=== PATIENT | female | born 1995 | race Two or more races ===

== ENCOUNTER 2020-05-28 17:15 | Emergency (ER) | payer MEDICAID ==
[2020-05-28 17:45] VITALS: BP 156/71
--- NOTE | 2020-05-28 17:45 | NUR ---
ED Nurse Note: Pt walked in to ED c/o increased hear rate with SOB. Per pt, she ran out of her inhaler. Hx of asthma. AAOx4, verbally responsive. Not in any distress. ERMD at bedside.
--- NOTE | 2020-05-28 17:50 | NUR ---
ED Nurse Note: Pt refused blood work and providing urine, ERMD notified.
--- NOTE | 2020-05-28 18:00 | NUR ---
ED Nurse Note: Xray at bedside.
[2020-05-28] MEDS ORDERED: ALBUTEROL SULF8.5 G1 INH (21:12)
--- NOTE | 2020-05-28 21:12 | Emergency Room Report ---
History of Present Illness General Chief Complaint: Shortness of Breath Source: Patient Present Illness HPI 25-year-old female history of asthma history of smoking, history of marijuana use presents with acute shortness of breath, patient reports running out of her inhaler, shortness of breath is alleviated with inhaler use aggravated by smoking, severity is moderate, constant patient is very anxious, patient presents for evaluation and treatment Patient History Past Medical History: see triage record Reviewed Nursing Documentation: PMH: Agreed; PSxH: Agreed Review of Systems All Other Systems: negative except mentioned in HPI Physical Exam Tachycardic SaO2 99 Sp02 EP Interpretation: reviewed, normal General Appearance: well appearing, no apparent distress, alert Head: normocephalic, atraumatic Eyes: bilateral eye PERRL, bilateral eye EOMI ENT: uvula midline, moist mucus membranes Neck: supple, thyroid normal, supple/symm/no masses Respiratory: no accessory muscle use, decreased breath sounds, wheezing Cardiovascular #1: normal peripheral pulses, no edema, no gallop, no murmur, tachycardia Gastrointestinal: non tender, soft, no guarding, no rebound Musculoskeletal: normal inspection Neurologic: alert, oriented x3 Psychiatric: anxious Skin: no rash, warm/dry Medical Decision Making Diagnostic Impression: Primary Impression: Asthma attack Qualified Codes: J45.901 - Unspecified asthma with (acute) exacerbation ER Course Please note this chart was transcribed after downtime was resolved, [employer] went down at 1 PM abruptly 25-year-old female presents with acute shortness of breath tachycardia, differential diagnosis includes asthma attack, pneumonia, COVID chest x-ray negative, EKG is sinus tachycardia, patient with wheezing on exam, and shortness of breath Patient was given Decadron, albuterol, with relief patient refused blood work patient was also given 3 L of NS Reevaluation at 9:10 PM patient feels comfortable currently on her phone wants to leave EKG Diagnostic Results EKG Time: 18:08 EP Interpretation: Sinus tachycardia, rate 116, QTc 444, no acute ST elevations , normal axis Rhythm Strip Diag. Results Rhythm Strip Time: 19:00 EP Interpretation: yes Rate: 99 Rhythm: NSR, no PVC's, no ectopy Chest X-Ray Diagnostic Results Chest X-Ray Diagnostic Results : Chest X-Ray Ordered: Yes # of Views/Limited/Complete: 1 View Indication: Shortness of Breath EP Interpretation: Yes Interpretation: no consolidation, no effusion, no pneumothorax, no acute cardiopulmonary disease Impression: No acute disease Electronically Signed by: Parmjit Tran MD Disposition: HOME, SELF-CARE Condition: Stable Scripts Albuterol Sulfate* (Albuterol Sulfate Hfa*) 8.5 Gm Hfa.aer.ad 2 PUFF INH Q6H PRN for Shortness of Breath, #1 INH Prov: Parmjit Tran MD 05/28/20 Referrals: [facility]ERRING (PCP) [facility] Patient Instructions: Asthma, Adult, [id number] Additional Instructions: The patient was provided with discharge instructions, notified to follow-up with a primary care doctor and or specialist in the next 24-48 hours, and to return to the ED if they have worsening of their symptoms. Please note that this report is being documented using DRAGON technology. This can lead to erroneous entry secondary to incorrect interpretation by the dictating instrument. Parmjit Tran MD May 28, 2020 21:12
[2020-05-28 21:22] VITALS: BP 147/82
--- NOTE | 2020-05-28 21:22 | NUR ---
ED Nurse Note: Pt cleared by ERMD for discharge. DC instructions/prescription was given and explained to pt and verbalized understanding of teachings. All medical deviecs such as ID band and IV line removed. Pt is AAO x4, ambulatory and left with all personal belongings.
--- NOTE | 2020-05-29 16:45 | Diagnostic Imaging Report ---
Indication: Shortness of Technique: One view of the chest Comparison: none Findings: Lungs and pleural spaces are clear. Heart size is normal. Impression: No acute process
== END 2020-05-28 21:22 | disposition home or self-care (01) ==
LOC: EMR 21:04
DX: J45.901 Unspecified asthma with (acute) exacerbation (principal); F17.200 Nicotine dependence, unspecified, uncomplicated
CPT/HCPCS: 71045; Z7502; 99283